=== PATIENT | male | born 1965 | race Caucasian/White ===

== ENCOUNTER 2021-04-14 06:44 | Day surgery (SDC) | payer BC ==
[~2021-04-14 06:44] MED LIST: Lactated Ringers 1,000 ML IV SCH
[2021-04-14] MEDS ORDERED: Propofol 200 MG/20 ML SDV ONE (07:32)
[2021-04-14] MEDS ORDERED: fentaNYL 100 MCG/2 ML SDV ONE ×2 (07:33→09:01)
[2021-04-14] MEDS ORDERED: Lactated Ringers 1,000 ML IV SCH (08:30)
== END 2021-04-14 09:08 | disposition home or self-care (01) ==
LOC: MW.SDS 06:44
PROVIDERS: ATTEND Surgery
DX: Z12.11 Encounter for screening for malignant neoplasm of colon (principal); D12.2 Benign neoplasm of ascending colon; K63.89 Other specified diseases of intestine; K57.30 Diverticulosis of large intestine without perforation or abscess without bleeding; I10 Essential (primary) hypertension; Z88.8 Allergy status to other drugs, medicaments and biological substances; Z79.899 Other long term (current) drug therapy; Z98.890 Other specified postprocedural states
CPT/HCPCS: 45380; J2704; J3010; J7120; 00812